=== PATIENT | male | born 1955 | race Caucasian/White ===

== ENCOUNTER 2017-04-06 06:58 | Emergency (ER) | payer SELFPAY ==
[~2017-04-06] VITALS: Ht 170.2 cm; Wt 82.0 kg
[2017-04-06 07:07] VITALS: BP 112/69; PULSE 75; RESP 17; TEMP 98.2; O2SAT 98
[2017-04-06] MEDS ORDERED: ONDANSETRON HCL 4 MG/2 ML VIAL IV PUSH ONE (07:15)
[2017-04-06] MEDS ORDERED: DICYCLOMINE HCL 20 MG/2 ML VIAL IM ONE (07:15)
[2017-04-06] MEDS ORDERED: SODIUM CHLORIDE 0.9% FLUSH 10 ML FLUSH IVF PRN (07:15)
[2017-04-06] MEDS ORDERED: SODIUM CHLOR 0.9% 1000 ML INJ 1,000 ML IV ONE ×2 (07:15→09:00)
--- NOTE | 2017-04-06 07:23 | PD ---
HPI Chief Complaint: GI Complaint Time Seen by Provider: 07:08 Travel History International Travel<30 days: No Contact w/Intl Traveler<30days: No Traveled to known affect area: No History of Present Illness HPI This is a 61-year-old male with no significant past medical history, presents today with complaints of nausea vomiting diarrhea. Patient states 2 days ago he ate suspicious smelling ham. He states shortly thereafter he started x-rays nausea. He says then the diarrhea started. He reports the diarrhea has progressive worse over last 24 hours. He reports now is just watery stool. There is no reported fevers. There is no reported chills. Patient does report now feeling weak and feels as though he may be dehydrated. There are no other complaints time my examination. PFSH Past Medical History Medical History: Denies Significant Hx Diminished Hearing: No Tetanus Vaccination: > 5 Years Influenza Vaccination: No Past Surgical History Abdominal Surgery: Yes Appendectomy: Yes Social History Alcohol Use: Yes (OCASSIONALLY) Tobacco Use: Yes (1/2 PACK PER DAY) Substance Use: No Allergies-Medications (Allergen,Severity, Reaction): Coded Allergies: No Known Allergies (Verified Allergy, Unknown, 04/06/17) Reported Meds & Prescriptions Reported Meds & Active Scripts Active No Active Prescriptions or Reported Medications Review of Systems Except as stated in HPI: all other systems reviewed are Neg General / Constitutional: No: Fever, Chills HENT: No: Headaches, Neck Pain Cardiovascular: No: Chest Pain or Discomfort, Palpitations, Tachycardia Respiratory: No: Cough, Shortness of Breath Gastrointestinal: Positive: Nausea, Vomiting, Diarrhea, Abdominal Pain (crampy. ), No: Hematochezia Genitourinary: No: Dysuria, Decreased Urinary Output Musculoskeletal: Positive: Weakness (generalized), No: Pain Neurologic: Positive: Weakness (generalized), Syncope (near syncope secondary to the weakness.), No: Headache, Sensory Disturbance Physical Exam Narrative GENERAL: Well developed well-nourished male in no acute respiratory distress. SKIN: Focused skin assessment warm/dry. HEAD: Atraumatic. Normocephalic. EYES: No scleral icterus. No injection or drainage. ENT: No nasal bleeding or discharge. Mucous membranes pink and moist. NECK: Trachea midline. Supple. CARDIOVASCULAR: Regular rate and rhythm. No murmur appreciated. RESPIRATORY: No accessory muscle use. Clear to auscultation. Breath sounds equal bilaterally. GASTROINTESTINAL: Abdomen soft, non-tender, nondistended. No rebound or guarding. The patient states that the abdominal pain is present when he is having crampy sensation followed by diarrhea. None now. MUSCULOSKELETAL: No obvious deformities. No clubbing. No cyanosis. No edema. NEUROLOGICAL: Awake and alert. No obvious cranial nerve deficits. Motor grossly within normal limits. Normal speech. PSYCHIATRIC: Appropriate mood and affect; insight and judgment normal. Data Data Last Documented VS Vital Signs Date Time Temp Pulse Resp B/P (MAP) Pulse Ox O2 Delivery O2 Flow Rate FiO2 04/06/17 09:01 69 16 120/72 (88) 96 Room Air 04/06/17 07:07 98.2 Orders Orders Complete Blood Count With Diff (04/06/17 07:15) Comprehensive Metabolic Panel (04/06/17 07:15) Lipase (04/06/17 07:15) Iv Access Insert/Monitor (04/06/17 07:15) Ecg Monitoring (04/06/17 07:15) Oximetry (04/06/17 07:15) Ondansetron Inj (Zofran Inj) (04/06/17 07:15) Sodium Chlor 0.9% 1000 Ml Inj (Ns 1000 M (04/06/17 07:15) Sodium Chloride 0.9% Flush (Ns Flush) (04/06/17 07:15) C Diff Toxin Pcr (04/06/17 07:15) Enteric Path (Stool) (04/06/17 07:15) Dicyclomine Inj (Bentyl Inj) (04/06/17 07:15) Sodium Chlor 0.9% 1000 Ml Inj (Ns 1000 M (04/06/17 09:00) Labs Laboratory Tests Test 04/06/17 07:25 White Blood Count 7.2 TH/MM3 Red Blood Count 5.69 MIL/MM3 Hemoglobin 15.8 GM/DL Hematocrit 47.2 % Mean Corpuscular Volume 82.9 FL Mean Corpuscular Hemoglobin 27.8 PG Mean Corpuscular Hemoglobin Concent 33.5 % Red Cell Distribution Width 13.3 % Platelet Count 174 TH/MM3 Mean Platelet Volume 8.7 FL Neutrophils (%) (Auto) 69.2 % Lymphocytes (%) (Auto) 19.1 % Monocytes (%) (Auto) 11.2 % Eosinophils (%) (Auto) 0.4 % Basophils (%) (Auto) 0.1 % Neutrophils # (Auto) 5.0 TH/MM3 Lymphocytes # (Auto) 1.4 TH/MM3 Monocytes # (Auto) 0.8 TH/MM3 Eosinophils # (Auto) 0.0 TH/MM3 Basophils # (Auto) 0.0 TH/MM3 CBC Comment DIFF FINAL Differential Comment Blood Urea Nitrogen 17 MG/DL Creatinine 1.02 MG/DL Random Glucose 154 MG/DL Total Protein 8.0 GM/DL Albumin 3.3 GM/DL Calcium Level 8.3 MG/DL Alkaline Phosphatase 68 U/L Aspartate Amino Transf (AST/SGOT) 59 U/L Alanine Aminotransferase (ALT/SGPT) 119 U/L Total Bilirubin 0.8 MG/DL Sodium Level 134 MEQ/L Potassium Level 4.3 MEQ/L Chloride Level 102 MEQ/L Carbon Dioxide Level 20.3 MEQ/L Anion Gap 12 MEQ/L Estimat Glomerular Filtration Rate 74 ML/MIN Lipase 136 U/L [facility] Medical Decision Making Medical Screen Exam Complete: Yes Emergency Medical Condition: Yes Differential Diagnosis Food related gastrointestinal disease versus viral gastroenteritis versus pancreatitis versus appendicitis versus diverticulitis Narrative Course 61-year-old male presents today with complaints of nausea vomiting diarrhea. Patient states he had suspicious smelling ham 2 days ago. The patient is nontoxic-appearing. White count is within normal limits. He has not been able to produce a sample for stool at this time. He's been given 2 L of IV fluid. His liver enzymes are elevated with the AST at 59 and ALT at 119. His blood sugar is 156. He'll be discharged home and told to have a bland diet and advance as tolerated. He is instructed to increase his fluid intake. He is also instructed to follow up with a primary care doctor for follow up of his liver enzymes and blood sugar. Diagnosis Primary Impression: Nausea vomiting and diarrhea Additional Impressions: Elevated liver enzymes Elevated blood sugar Additional Instructions: Plan diet and advance as tolerated. Drink plenty of fluids. Follow up with primary care physician for recheck of liver enzymes and blood sugar. Scripts No Active Prescriptions or Reported Meds Disposition: 01 DISCHARGE HOME Condition: Stable Inder Jha MD Apr 06, 2017 07:23
[2017-04-06 07:25] VITALS: RESP 17; O2SAT 98
[2017-04-06 07:57] LABS: BASOPHIL % 0.1 % (0.0-2.0); EOSINOPHIL % 0.4 % (0.0-4.0); HEMATOCRIT 47.2 % (39.0-51.0); HEMO FLAGS DIFF FINAL; LYMPH % 19.1 % (9.0-44.0); LYMPHOCYTE # 1.4 TH/MM3 (1.0-4.8); MEAN CELL VOLUME 82.9 FL (80.0-100.0); MEAN CORPUSCULAR HEMOGLOBIN 27.8 PG (27.0-34.0); MEAN CORPUSCULAR HGB CONC 33.5 % (32.0-36.0); MONO % 11.2 % (0.0-8.0); NEUT % 69.2 % (16.0-70.0); PLATELET COUNT 174 TH/MM3 (150-450); RED BLOOD COUNT 5.69 MIL/MM3 (4.50-5.90); RED CELL DISTRIBUTION WIDTH 13.3 % (11.6-17.2); WHITE BLOOD COUNT 7.2 TH/MM3 (4.0-11.0)
[2017-04-06 08:15] LABS: ALKALINE PHOSPHATASE 68 U/L (45-117); TOTAL BILIRUBIN ADULT 0.8 MG/DL (0.2-1.0)
[2017-04-06 08:19] LABS: ALT (GPT) 119 U/L (12-78); ANION GAP 12 MEQ/L (5-15); AST (GOT) 59 U/L (15-37); BICARBONATE 20.3 MEQ/L (21.0-32.0); BLOOD UREA NITROGEN 17 MG/DL (7-18); CHLORIDE 102 MEQ/L (98-107); GLOMERULAR FILTRATION RATE 74 ML/MIN (>89); POTASSIUM 4.3 MEQ/L (3.5-5.1); SODIUM (NA) 134 MEQ/L (136-145)
[2017-04-06 09:01] VITALS: BP 120/72; PULSE 69; RESP 16; O2SAT 96
[2017-04-06 11:12] VITALS: BP 124/81; TEMP 97.8
[2017-04-06] MEDS ORDERED: DICY10 PO (16:35)
[2017-04-06] MEDS ORDERED: LOMO2.5T PO (16:35)
== END 2017-04-06 11:15 | disposition home or self-care (01) ==
LOC: NEPC 06:58
DX: R11.2 Nausea with vomiting, unspecified (principal); R19.7 Diarrhea, unspecified; R74.8 Abnormal levels of other serum enzymes; R73.9 Hyperglycemia, unspecified; F17.200 Nicotine dependence, unspecified, uncomplicated
CPT/HCPCS: 80053; 83690; 85025; 96361; 96372; 96374; 99284; J0500; J2405; J7030

== ENCOUNTER 2017-04-06 14:53 | Emergency (ER) | payer SELFPAY ==
[~2017-04-06] VITALS: Ht 172.7 cm; Wt 80.0 kg
[2017-04-06 14:55] VITALS: BP 130/75; PULSE 92; RESP 15; TEMP 98.2; O2SAT 95
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
[2017-04-06] MEDS ORDERED: DIPHENOXYLATE/ATROPINE 2.5 MG/0.025 MG TAB PO ONE (16:30)
[2017-04-06] MEDS ORDERED: DICYCLOMINE HCL 10 MG CAP PO ONE (16:30)
[2017-04-06] MEDS ORDERED: DICY10 PO (16:35)
[2017-04-06] MEDS ORDERED: LOMO2.5T PO (16:35)
[2017-04-06 17:07] VITALS: BP 145/73; PULSE 74; RESP 17; O2SAT 100
[2017-04-06 19:17] LABS: C. DIFF EPI 027 PRESUMPTIVE NEGATIVE (NEGATIVE)
== END 2017-04-06 17:53 | disposition home or self-care (01) ==
LOC: NEPD 14:53
DX: K52.9 Noninfective gastroenteritis and colitis, unspecified (principal); Z72.0 Tobacco use
CPT/HCPCS: 87493; 99284